=== PATIENT | male | born 1965 | race Native Hawaiian/Other Pacific Islander ===

== ENCOUNTER 2017-01-05 07:14 | Outpatient (CLI) | payer BC | END 2017-01-05 19:13 | disposition home or self-care (01) | LOC: NM 07:14 | DX: R07.89 Other chest pain (principal) | CPT/HCPCS: A9500; J2785 ==

== ENCOUNTER 2020-07-22 10:19 | Outpatient (CLI) | payer OTHER | END 2020-07-22 22:12 | disposition home or self-care (01) | LOC: RAD 10:19 | PROVIDERS: ATTEND Internal Medicine | DX: A31.0 Pulmonary mycobacterial infection (principal); J45.909 Unspecified asthma, uncomplicated; E11.9 Type 2 diabetes mellitus without complications; I10 Essential (primary) hypertension; M19.90 Unspecified osteoarthritis, unspecified site; G47.30 Sleep apnea, unspecified; F32.9 Major depressive disorder, single episode, unspecified; M25.559 Pain in unspecified hip; M25.569 Pain in unspecified knee; M79.673 Pain in unspecified foot; M79.676 Pain in unspecified toe(s); R22.9 Localized swelling, mass and lump, unspecified ==

== ENCOUNTER 2021-02-24 09:15 | Outpatient (CLI) | payer OTHER | END 2021-02-24 19:42 | disposition home or self-care (01) | LOC: RAD 09:15 | PROVIDERS: ATTEND Nurse Practitioner Family | DX: M54.16 Radiculopathy, lumbar region (principal) ==

== ENCOUNTER 2021-10-14 09:19 | Outpatient (CLI) | payer OTHER | END 2021-10-14 21:03 | disposition home or self-care (01) | LOC: RAD 09:19 | PROVIDERS: ATTEND Nurse Practitioner | DX: R06.02 Shortness of breath (principal) ==